=== PATIENT | male | born 1945 | race Caucasian/White ===

== ENCOUNTER 2018-08-22 08:37 | Inpatient (IN) | payer MEDICARE ==
[2018-08-22] MEDS ORDERED: Midazolam HCl 5 mg/ml Vial ONE (08:48)
[2018-08-22] MEDS ORDERED: Succinylcholine Chloride 20 MG/ML 10 ml SYRINGE FS ONE (08:58)
[2018-08-22 09:04] LABS: #Eosinphils 0.2 thou/uL (0.0-0.7); #Lymphocytes 1.3 thou/uL (1.20-3.40); #Monocytes 0.7 thou/uL (0.11-0.59); #Neutrophils 7.5 thou/uL (1.40-6.50); %Basophils 0.1 % (0.0-1.0); %Eosinophils 2.3 % (0.0-10.0); %Lymphocytes 13.8 % (21.0-51.0); %Monocytes 6.8 % (0.0-10.0); %Neutrophils 77.1 % (42.0-75.0); Hemoglobin 14.5 g/dL (14.0-18.0); Mean Corpuscular HGB CONC 33.5 g/dL (32.0-36.0); Mean Corpuscular Volume 95.4 fL (78.0-98.0); Mean Platelet Volume 7.3 fL (7.4-10.4); Platelet Count 304 thou/uL (130-400); RBC Distribution Width 13.5 % (11.5-14.5); Red Blood Cell (RBC) Count 4.52 mill/uL (4.70-6.10); White Blood Cell (WBC) Count 9.7 thou/uL (4.8-10.8)
[2018-08-22 09:11] LABS: PTT 37.7 SEC (22.9-36.1); Prothrombin Time 36.4 SEC (12.0-14.7)
[2018-08-22 09:12] LABS: INR-International Normal Ratio 3.7
[2018-08-22 09:27] LABS: ALT (SGPT) 21 U/L (8-55); AST (SGOT) 32 U/L (5-34); Albumin 4.2 g/dL (3.4-4.8); Alkaline Phosphatase 93 U/L (40-150); Anion Gap 14 mmol/L (10-20); BUN (Urea Nitrogen) 26 mg/dL (8.4-25.7); Bilirubin, Total 0.6 mg/dL (0.2-1.2); CK (CPK) 315 U/L (30-200); Calc. Creatinine Clearance 0 mL/min (70-130); Calcium 9.3 mg/dL (7.8-10.44); Carbon Dioxide 21 mmol/L (23-31); Chloride 106 mmol/L (98-107); Estimated GFR-MDRD 74; Globulin 3.3 g/dL (2.4-3.5); Glucose 180 mg/dL (83-110); Potassium 3.7 mmol/L (3.5-5.1); Protein, Total 7.5 g/dL (5.8-8.1); Sodium 137 mmol/L (136-145)
[2018-08-22 09:31] LABS: CKMB 5.4 ng/mL (0-6.6); Troponin I Less than 0.010 ng/mL (< 0.028)
[2018-08-22 09:52] LABS: Actual Bicarbonate (HCO3a) 22.6 mEq/L (22-28); Analyzer IN Cardio ER; Base Excess (BEa) -3.1 mEq/L (-2.0 to +3.0); CO2 Tension 42.9 mmHg (35.0-45.0); Calcium, Ionized 1.12 mmol/L (1.12-1.30); Carboxyhemoglobin (COHb) 0.4 gm% (0.0-3.0); Hemoglobin (Hb) 13.1 g/dL (14.0-18.0); O2 Tension (PaO2) 137.5 mmHg (> 70.0); Potassium - ABG Lab 3.13 mmol/L (3.70-5.30); pH, Arterial 7.34 (7.35-7.45)
[2018-08-22 09:54] LABS: ALV-art Gradient 165.375 (0-20); Puncture Site LBA
[2018-08-22] MEDS ORDERED: niCARdipine 20MG In NaCl 20 MG/200 ML BAG ONE (10:13)
[2018-08-22 10:20] LABS: Bilirubin Negative (Negative); Blood, Urine Small (Negative); Clarity CLEAR (Clear); Glucose, Urine (Dipstick) Negative (Negative); Leukocyte Negative (Negative); Nitrite Negative (Negative); Protein, Urine (Dipstick) 100 mg/dL (Neg-Trace); Specific Gravity, Urine 1.015 (1.002-1.036); Urobilinogen 0.2 mg/dL (0.2-1.0)
[2018-08-22] MEDS ORDERED: Fentanyl 20 mcg/ml (100 ml CADD) IV PRN (10:25)
[2018-08-22 10:26] LABS: Bacteria/HPF None Seen HPF (None Seen); Hyaline Casts/LPF 0-3 HYALINE CAST LPF (0-3 Hyaline); Pathc Cast-AUWi Flag 0.14 (0-2.49); RBC/HPF 0-3 HPF (0-3); Squamous Epithelial 0-3 HPF (0-3); WBC/HPF None Seen HPF (0-3)
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
[2018-08-22] MEDS ORDERED: Phytonadione 10 MG/ML AMP IM SCH ×2 (10:45→12:45)
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
[2018-08-22] MEDS ORDERED: ISOVUE-370 76%-LOCM 1 ML ONE ×2 (10:47)
[2018-08-22] MEDS ORDERED: Fentanyl 100 MCG/2 ML VIAL ONE ×4 (11:01→11:18)
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
[2018-08-22] MEDS ORDERED: Ondansetron ODT 4 MG TAB PO PRN (11:14)
[2018-08-22] MEDS ORDERED: Dextrose 50% Abboject 50 ML SYRINGE SLOW IVP PRN (11:14)
[2018-08-22] MEDS ORDERED: hydrALAZINE 20 MG/ML VIAL SLOW IVP PRN (11:14)
[2018-08-22] MEDS ORDERED: Ondansetron PF 4 MG/2 ML Vial IVP PRN (11:14)
[2018-08-22] MEDS ORDERED: Dextrose 5% in Water 1,000 ML IV PRN (11:14)
[2018-08-22] MEDS ORDERED: [UNRECOGNIZED DRUG - OTHER] IV SCH (11:15)
[2018-08-22] MEDS ORDERED: ADMIXTURE FEE IV SCH ×2 (11:15)
[2018-08-22] MEDS ORDERED: [UNRECOGNIZED DRUG - OTHER] IV SCH (11:15)
[2018-08-22] MEDS ORDERED: HUM PROTHROMBIN CPLX(PCC)4FACT 1,000 UNIT in Admixture Fee 1 EACH IV SCH (11:15)
[2018-08-22] MEDS ORDERED: HUM PROTHROMBIN CPLX IV SCH ×2 (11:15)
[2018-08-22] MEDS ORDERED: Lorazepam 2 MG/ML VIAL SLOW IVP PRN (11:48)
[2018-08-22] MEDS ORDERED: Propofol 1,000 MG/100 ML VIAL IV PRN (11:48)
[2018-08-22] MEDS ORDERED: fentaNYL Citrate/PF 2,000 MCG in Sodium Chloride 0.9% 60 ML IV SCH (11:48)
[2018-08-22] MEDS ORDERED: Fentanyl BOLUS 250 ML IVPB PRN (11:48)
[2018-08-22] MEDS ORDERED: DISCONTINUE PREVIOUS NARCOTIC PAIN MEDICATIONS AND BENZODIAZEPINES FS SCH (11:48)
[2018-08-22] MEDS ORDERED: Propofol BOLUS 1,000 MG/100 ML VIAL IV PRN (11:48)
[2018-08-22 11:51] VITALS: BMI 30.7
[2018-08-22 12:29] LABS: INR-International Normal Ratio 1.7; PTT 31.1 SEC (22.9-36.1); Prothrombin Time 19.8 SEC (12.0-14.7)
[2018-08-22] MEDS ORDERED: Sodium Bicarbonate 100 MEQ in Dextrose 5% in Water 1,000 ML IV SCH (12:45)
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
--- NOTE | 2018-08-22 14:29 | RAD ---
THREE VIEWS LEFT ANKLE: Date: 08-22-18 History: FINDINGS: There is irregularity involving the medial malleolus as well as distal fibula which may be related to remote fractures and prior injury. No definite acute fracture is seen. There is no dislocation. The ankle mortise is congruent. Mild degenerative changes are seen at the tibiotalar joint. There are als o minimal degenerative changes involving the midfoot. Small posterior and plantar calcaneal enthesoph ytes are identified. IMPRESSION: Findings likely related to prior injury and possible prior fractures involving the medial malleolus a nd distal fibula. There is questionable lucency seen within the lateral aspect of the talar dome and subchondral defect cannot be entirely excluded. POS: [facility]
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
[2018-08-22 18:51] LABS: Anion Gap 12 mmol/L (10-20); BUN (Urea Nitrogen) 21 mg/dL (8.4-25.7); Calc. Creatinine Clearance 100 mL/min (70-130); Calcium 8.9 mg/dL (7.8-10.44); Carbon Dioxide 27 mmol/L (23-31); Chloride 102 mmol/L (98-107); Estimated GFR-MDRD 75; Glucose 143 mg/dL (83-110); Sodium 137 mmol/L (136-145)
--- NOTE | 2018-08-22 19:07 | CT ---
BRAIN CT WITHOUT IV CONTRAST: History: Follow up intracranial hemorrhage. Comparison: 08-22-18 at 0935 hours. FINDINGS: There is a very extensive subarachnoid, subdural and intraparenchymal hemorrhage changes again noted. The left sided subdural hemorrhage has definitely increased in size. There is also some increase in size of the smaller right sided subdural hematoma. There is increase in size of the left subdural hem atoma along the tentorium. Worsening intraparenchymal contusions, particularly in the frontal lobes. There does not appear to be any significant change in the midline. Basal cisterns appear diminished i ndicating generalized significant mass effect. IMPRESSION: Considerable worsening in the hemorrhagic changes bilaterally, particularly the left sided subdural h ematoma with a small right subdural showing worsening as well as intraparenchymal contusion showing w orsening. Possible trace intraventricular hemorrhage. Findings were discussed with nurse Heidi, who i ndicates that she will contact Romaine Duncan in this regard. Code CR POS: [facility]
--- NOTE | 2018-08-22 19:09 | RAD ---
KUB: Comparison: None. History: NG tube placement. FINDINGS: Single view of the abdomen shows a nonspecific, nonobstructed bowel gas pattern. An NG tube is seen i n the stomach. Degenerative changes are seen in the spine. The patient has a left hip prosthesis. IMPRESSION: 1. No evidence of bowel obstruction. 2. NG tube located in the stomach. POS: [facility]
[2018-08-22] MEDS: Famotidine/PF 20 mg/2ml Vial SLOW IVP SCH (20:32)
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
--- NOTE | 2018-08-22 22:31 | CT ---
CT HEAD NONCONTRAST: 08/22/18 HISTORY: Intracranial hemorrhage. Followup. COMPARISON: Earlier exam on the same date. FINDINGS: Widespread subarachnoid hemorrhage, multifocal intraparenchymal hematomas near the farris-white junctio n, and the left temporoparietal subdural hematoma are similar in appearance to the previous exam. Sma ll amount of acute hemorrhage in each lateral ventricle is also stable. Ventricles remain decompresse d. Diffuse effacement of the sulci and basilar cisterns. Small right posterior temporal subdural chivo yin is stable. Diffuse scalp swelling. Small embedded metallic sphere at the frontal scalp. IMPRESSION: Widespread intracranial hemorrhage and other posttraumatic findings are stable compared to the most r ecent exam. POS: [facility]
[2018-08-23] MEDS ORDERED: Sodium Chloride 0.9% 500 ML IVPB SCH (01:00)
[2018-08-23] MEDS ORDERED: Hydrocortisone Sod Succ/PF 100 mg/2 ml Vial IVP SCH (01:00)
[2018-08-23 01:26] LABS: Hemoglobin 11.7 g/dL (14.0-18.0)
[2018-08-23] MEDS: Lactated Ringer's 1,000 ML IV SCH ×3 (01:26→19:06)
[2018-08-23 04:56] LABS: INR-International Normal Ratio 2.3; Prothrombin Time 24.9 SEC (12.0-14.7)
[2018-08-23 05:01] LABS: #Lymphocytes 0.6 thou/uL (1.20-3.40); #Monocytes 0.7 thou/uL (0.11-0.59); #Neutrophils 8.8 thou/uL (1.40-6.50); %Basophils 0.1 % (0.0-1.0); %Eosinophils 0.2 % (0.0-10.0); %Monocytes 6.8 % (0.0-10.0); Hemoglobin 12.1 g/dL (14.0-18.0); Mean Corpuscular HGB CONC 33.3 g/dL (32.0-36.0); Mean Corpuscular Hemoglobin 31.6 pg (27.0-31.0); Mean Corpuscular Volume 94.8 fL (78.0-98.0); Mean Platelet Volume 7.8 fL (7.4-10.4); Platelet Count 278 thou/uL (130-400); RBC Distribution Width 13.5 % (11.5-14.5); Red Blood Cell (RBC) Count 3.84 mill/uL (4.70-6.10); White Blood Cell (WBC) Count 10.1 thou/uL (4.8-10.8)
[2018-08-23 05:16] LABS: Anion Gap 13 mmol/L (10-20); BUN (Urea Nitrogen) 23 mg/dL (8.4-25.7); CK (CPK) 241 U/L (30-200); Calc. Creatinine Clearance 98 mL/min (70-130); Calcium 8.5 mg/dL (7.8-10.44); Carbon Dioxide 28 mmol/L (23-31); Chloride 102 mmol/L (98-107); Estimated GFR-MDRD 73; Glucose 147 mg/dL (83-110); Magnesium 1.7 mg/dL (1.6-2.6); Phosphorus 2.2 mg/dL (2.3-4.7); Potassium 3.7 mmol/L (3.5-5.1); Sodium 139 mmol/L (136-145)
[2018-08-23 07:42] LABS: Actual Bicarbonate (HCO3a) 24.7 mEq/L (22-28); Base Excess (BEa) 2.2 mEq/L (-2.0 to +3.0); CO2 Tension 31.5 mmHg (35.0-45.0); Carboxyhemoglobin (COHb) 1.1 gm% (0.0-3.0); Hemoglobin (Hb) 12.1 g/dL (14.0-18.0); O2 Tension (PaO2) 61.5 mmHg (> 70.0); pH, Arterial 7.51 (7.35-7.45)
[2018-08-23 07:43] LABS: Puncture Site RRA
[2018-08-23 07:44] LABS: ALV-art Gradient 184.325 (0-20)
[2018-08-23] MEDS ORDERED: Iopamidol 370 76% 50 ML VIAL FS ONE (08:06)
[2018-08-23] MEDS ORDERED: Magnesium 2 GM/50 ML 2 GM in Premix Bag 1 BAG IVPB SCH (08:15)
[2018-08-23] MEDS ORDERED: Potassium Phosphate 30 MMOL in Sodium Chloride 0.9% 500 ML IVPB SCH (08:30)
--- NOTE | 2018-08-23 09:22 | PRG ---
DATE OF SERVICE: 08/23/2018 Mr. Patel, this morning, is still intubated and sedated. His CAT scan last night around 10:00 was stable to the one performed yesterday afternoon 1600. His exam is also stable. He localizes pain wi th all 4 extremities, but does not follow any commands. He does not open his eyes at any time. He i s intubated and attempts to grasp with the tube given the chance that is why he has remained on cheri tion throughout the night. We will plan to repeat another CAT scan this morning around 10:00 just to ensure that there is no longer any hemorrhagic progression. Family at bedside asked for possibility of IVC filter given the need of his Coumadin for clotting purposes. I would support the decision, b ut defer to Trauma team for that final decision.
[2018-08-23] MEDS: Famotidine/PF 20 mg/2ml Vial SLOW IVP SCH ×2 (09:23→21:14)
[2018-08-23] MEDS ORDERED: Lidocaine 1% (PF) 30 ML VIAL ONE (09:35)
--- NOTE | 2018-08-23 09:39 | RAD ---
PORTABLE CHEST: Date: 08/23/18 HISTORY: Intubation and ventilator follow-up. CCU follow-up. COMPARISON: 08/22/18. FINDINGS: Cardiomegaly. Small bilateral effusions and bibasilar atelectasis. Upper lung graham remain well aera brittani and clear. ET tube and NG tube are noted. The NG tube coils in the stomach. IMPRESSION: No acute interval change. POS: [facility]
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
[2018-08-23] MEDS ORDERED: Lisinopril 20 MG TAB PO SCH (12:00)
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
[2018-08-23 13:27] LABS: INR-International Normal Ratio 1.7; PTT 49.6 SEC (22.9-36.1); Prothrombin Time 19.6 SEC (12.0-14.7)
[2018-08-23] MEDS: niCARdipine HCl 25 MG in Sodium Chloride 0.9% 250 ML 240 ML IVPB SCH ×3 (14:43→19:08)
[2018-08-23] MEDS ORDERED: Lorazepam 2 MG/ML VIAL ONE (15:26)
--- NOTE | 2018-08-23 16:14 | CT ---
CT HEAD NONCONTRAST: 08/23/18 HISTORY: Intracranial hemorrhage. Followup. COMPARISON: 08/22/18. FINDINGS: Widespread subarachnoid hemorrhage and multifocal intraparenchymal hematomas, predominantly near the farris-white junction are similar in appearance to the prior study. Small subdural hyperdense hematomas at each posterior temporal level are unchanged in size. The hemorrhage within the dependent portion of each lateral ventricle is less visible than on the prior study. Diffuse cerebral edema with efface ment of the sulci and basilar cisterns is again demonstrated. On today's exam, a subtle areas of low density involving the posterior aspect of the left temporal lo be extends through the cortical farris matter and has the appearance of developing cytotoxic edema. Sep sara pellucidum remains midline. IMPRESSION: Developing cytotoxic edema associated with a left posterior temporal lobe infarct in the posterior di stribution of the middle cerebral artery. Diffuse cerebral edema, widespread hemorrhage, and other findings are otherwise stable. POS: [facility]
[2018-08-23] MEDS ORDERED: Acetaminophen 1,000 MG in Premix Bag 1 BAG IVPB PRN (17:18)
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
[2018-08-23] MEDS ORDERED: manNITOL 20% 500 ML IVPB SCH (23:45)
--- NOTE | 2018-08-23 23:45 | CT ---
CT HEAD NONCONTRAST: 08/23/18 HISTORY: Intracranial hemorrhage Declining neurologic status. COMPARISON: Multiple previous exams FINDINGS: Widespread subarachnoid hemorrhage and multifocal intraparenchymal hematomas are similar in appearanc e to the previous exam. Going back to the study from the afternoon of 08/22/18, the hemorrhage is sta ble. The area of developing infarct at the posterior aspect of the left temporal lobe has enlarged sl ightly. Septum pellucidum remains midline. Diffuse cerebral edema and other findings are stable. IMPRESSION: Slight interval enlargement of the area of developing infarct in the left temporal lobe. Widespread subarachnoid hemorrhage, diffuse cerebral edema, and other findings are otherwise stable. POS: [facility]
[2018-08-23] MEDS ORDERED: fentaNYL Citrate/PF 2,000 MCG in Sodium Chloride 0.9% 60 ML IV SCH (23:47)
[2018-08-23] MEDS ORDERED: Fentanyl CADD 250 ML IVPB SCH (23:47)
[2018-08-23] MEDS ORDERED: Propofol BOLUS 1,000 MG/100 ML VIAL IV PRN (23:47)
[2018-08-23] MEDS ORDERED: Propofol 1,000 MG/100 ML VIAL IV PRN (23:47)
[2018-08-24 00:29] LABS: Anion Gap 13 mmol/L (10-20); BUN (Urea Nitrogen) 27 mg/dL (8.4-25.7); Calc. Creatinine Clearance 87 mL/min (70-130); Calcium 8.3 mg/dL (7.8-10.44); Carbon Dioxide 26 mmol/L (23-31); Chloride 105 mmol/L (98-107); Estimated GFR-MDRD 64; Glucose 158 mg/dL (83-110); Potassium 3.5 mmol/L (3.5-5.1); Sodium 140 mmol/L (136-145)
[2018-08-24] MEDS: Atropine Sulfate 1 mg/10 ml Syringe ONE ×2 (01:50→06:28)
[2018-08-24] MEDS: Lactated Ringer's 1,000 ML IV SCH ×3 (03:33→14:55)
[2018-08-24 04:51] LABS: INR-International Normal Ratio 1.5; PTT 40.5 SEC (22.9-36.1); Prothrombin Time 18.4 SEC (12.0-14.7)
[2018-08-24 04:52] LABS: #Lymphocytes 0.6 thou/uL (1.20-3.40); #Monocytes 0.7 thou/uL (0.11-0.59); #Neutrophils 7.4 thou/uL (1.40-6.50); %Basophils 0.2 % (0.0-1.0); %Eosinophils 0.1 % (0.0-10.0); %Lymphocytes 6.9 % (21.0-51.0); %Monocytes 7.7 % (0.0-10.0); %Neutrophils 85.1 % (42.0-75.0); Hemoglobin 10.7 g/dL (14.0-18.0); Mean Corpuscular HGB CONC 33.1 g/dL (32.0-36.0); Mean Corpuscular Hemoglobin 31.5 pg (27.0-31.0); Mean Corpuscular Volume 95.3 fL (78.0-98.0); Mean Platelet Volume 8.3 fL (7.4-10.4); Platelet Count 268 thou/uL (130-400); RBC Distribution Width 13.5 % (11.5-14.5); Red Blood Cell (RBC) Count 3.39 mill/uL (4.70-6.10); White Blood Cell (WBC) Count 8.7 thou/uL (4.8-10.8)
[2018-08-24 05:13] LABS: Anion Gap 11 mmol/L (10-20); BUN (Urea Nitrogen) 27 mg/dL (8.4-25.7); Calc. Creatinine Clearance 89 mL/min (70-130); Calcium 8.3 mg/dL (7.8-10.44); Carbon Dioxide 26 mmol/L (23-31); Chloride 104 mmol/L (98-107); Estimated GFR-MDRD 65; Glucose 149 mg/dL (83-110); Magnesium 2.2 mg/dL (1.6-2.6); Phosphorus 2.3 mg/dL (2.3-4.7); Potassium 3.8 mmol/L (3.5-5.1); Sodium 137 mmol/L (136-145)
[2018-08-24] MEDS ORDERED: Potassium Phosphate 15 MMOL in Sodium Chloride 0.9% 250 ML 250 ML IVPB SCH (07:30)
[2018-08-24 07:39] VITALS: TEMP 97.2
[2018-08-24 07:40] LABS: Actual Bicarbonate (HCO3a) 26.5 mEq/L (22-28); Base Excess (BEa) 2.8 mEq/L (-2.0 to +3.0); CO2 Tension 37.2 mmHg (35.0-45.0); Carboxyhemoglobin (COHb) 0.6 gm% (0.0-3.0); O2 Tension (PaO2) 68.7 mmHg (> 70.0); pH, Arterial 7.47 (7.35-7.45)
[2018-08-24 07:44] LABS: Puncture Site RRA
[2018-08-24 07:45] LABS: Anion Gap 11 mmol/L (10-20); BUN (Urea Nitrogen) 27 mg/dL (8.4-25.7); Calc. Creatinine Clearance 86 mL/min (70-130); Calcium 8.3 mg/dL (7.8-10.44); Carbon Dioxide 26 mmol/L (23-31); Chloride 109 mmol/L (98-107); Estimated GFR-MDRD 63; Glucose 146 mg/dL (83-110); Potassium 3.6 mmol/L (3.5-5.1); Sodium 142 mmol/L (136-145)
[2018-08-24 07:59] LABS: Osmolality, Urine 198 mOsm/kg (300-900)
[2018-08-24 08:11] LABS: Sodium, Urine Less than 20 mmol/L (Not Available)
[2018-08-24] MEDS ORDERED: Lisinopril 20 MG TAB PO SCH (09:00)
--- NOTE | 2018-08-24 09:13 | CT ---
CT HEAD WITHOUT CONTRAST: Date: 08/24/18 Multiple axial tomograms obtained through the head without IV enhancement. INDICATION: Follow-up intracranial hemorrhage. Comparison made to prior CT scan of 08/23/18 at 2320 hours and 1539 hours. FINDINGS: Diffuse subarachnoid blood is again noted. The basilar cisterns are obscured, suggesting increased in tracranial pressure. The numerous focal parenchymal hemorrhages seen throughout both cerebral hemisph eres, as well as the cerebellum, are again seen. These have not significantly increased in size or nu mber. IMPRESSION: Diffuse subarachnoid blood, as well as scattered parenchymal hemorrhages, are stable in appearance. T here is evidence of increasing intracranial pressure. There is increased sulcal effacement and oblite ration of the basilar cisterns. POS: [facility]
[2018-08-24] MEDS ORDERED: Lactated Ringer's 500 ML IV SCH (09:30)
[2018-08-24] MEDS: Famotidine/PF 20 mg/2ml Vial SLOW IVP SCH ×2 (09:35→20:16)
--- NOTE | 2018-08-24 11:08 | PRG ---
DATE OF SERVICE: 08/24/2018 SUBJECTIVE: Mr. Patel this morning unfortunately looks to have taken a significant neurologic down turn. This started overnight where his pupils became unequal. A stat CT was ordered that showed inc reasing edema and mannitol was started at 60 grams single dose, which was administered at 0027. Urin e output has been extraordinarily higher from 350-500. Immediately thereafter, most recently a t 350, we will order urine sodium, urine osmolality, serum osmolality, base met and urine specific gr avity to assess for any chance of . He does not have any other electrolyte derangement on exam. He is on fentanyl. He only withdrawals slightly with bilateral lower extremities, but do not have any upper extremities response. His bilateral pupils are now fixed at 6 mm and nonreactive. He do n ot have any pupil reflex, gag reflex or cough. There are issues with blood pressure and bradycardia, which Trauma has corrected. We will repeat a CAT scan here in an hour and adjust treatment as such based on the results. We will discuss with Dr. Fink.
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
[2018-08-24 14:04] LABS: Sodium 148 mmol/L (136-145)
[2018-08-24] MEDS ORDERED: Atropine Sulfate 1 mg/1 ml Vial IVP PRN (16:43)
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
[2018-08-25 04:10] LABS: Anion Gap 8 mmol/L (10-20); BUN (Urea Nitrogen) 30 mg/dL (8.4-25.7); Calc. Creatinine Clearance 75 mL/min (70-130); Calcium 8.6 mg/dL (7.8-10.44); Carbon Dioxide 31 mmol/L (23-31); Chloride 120 mmol/L (98-107); Estimated GFR-MDRD 53; Glucose 87 mg/dL (83-110); Magnesium 2.4 mg/dL (1.6-2.6); Phosphorus 2.3 mg/dL (2.3-4.7); Potassium 3.5 mmol/L (3.5-5.1); Sodium 155 mmol/L (136-145)
[2018-08-25 04:22] LABS: Hemoglobin 9.4 g/dL (14.0-18.0); Mean Corpuscular HGB CONC 32.9 g/dL (32.0-36.0); Mean Corpuscular Hemoglobin 32.5 pg (27.0-31.0); Mean Corpuscular Volume 98.8 fL (78.0-98.0); Mean Platelet Volume 7.5 fL (7.4-10.4); Platelet Count 219 thou/uL (130-400); RBC Distribution Width 13.7 % (11.5-14.5); White Blood Cell (WBC) Count 6.8 thou/uL (4.8-10.8)
[2018-08-25 04:55] LABS: Band 12 % (5-11); Lymphocytes 11 % (21-51); MDiff Complete? YES; Monocytes 8 % (0-10); Neutrophil 69 % (42-75)
[2018-08-25] MEDS: Lactated Ringer's 1,000 ML IV SCH (05:36)
[2018-08-25] MEDS ORDERED: Levothyroxine Sodium 400 MCG in Sodium Chloride 0.9% 100 ML IVPB SCH (08:30)
[2018-08-25] MEDS ORDERED: Insulin Regular 300 UNITS/3 ML VIAL IVP SCH (08:30)
[2018-08-25] MEDS ORDERED: methylPREDNISolone Sod Succ 2 GM in Sodium Chloride 0.9% 100 ML IVPB SCH (08:30)
[2018-08-25] MEDS ORDERED: Dextrose 50% Abboject 50 ML SYRINGE SLOW IVP SCH (08:30)
--- NOTE | 2018-08-25 08:55 | RAD ---
SINGLE VIEW CHEST: Date: 08/25/18 COMPARISON: 08/23/18. HISTORY: Respiratory status change. FINDINGS: Single view of the chest shows an enlarged but stable cardiomediastinal silhouette. The patient is st atus post sternotomy. The endotracheal tube and NG tube are unchanged in position. Increased opacity is seen in the right thorax which likely represents a pleural effusion and adjacent atelectasis versu s infiltrate. IMPRESSION: Worsening right pleural effusion with adjacent atelectasis versus infiltrate. POS: [facility]
[2018-08-25] MEDS: Famotidine/PF 20 mg/2ml Vial SLOW IVP SCH (09:18)
[2018-08-25 09:28] LABS: ALT (SGPT) 11 U/L (8-55); AST (SGOT) 15 U/L (5-34); AST (SGOT) 17 U/L (5-34); Albumin 2.8 g/dL (3.4-4.8); Albumin 2.9 g/dL (3.4-4.8); Alkaline Phosphatase 54 U/L (40-150); Alkaline Phosphatase 56 U/L (40-150); Anion Gap 6 mmol/L (10-20); BUN (Urea Nitrogen) 31 mg/dL (8.4-25.7); Bilirubin, Direct 0.4 mg/dL (0.1-0.3); Bilirubin, Total 1.1 mg/dL (0.2-1.2); Calc. Creatinine Clearance 70 mL/min (70-130); Calcium 8.5 mg/dL (7.8-10.44); Carbon Dioxide 28 mmol/L (23-31); Chloride 119 mmol/L (98-107); Estimated GFR-MDRD 50; Globulin 2.6 g/dL (2.4-3.5); Glucose 94 mg/dL (83-110); Potassium 3.3 mmol/L (3.5-5.1); Protein, Total 5.4 g/dL (5.8-8.1); Sodium 150 mmol/L (136-145)
[2018-08-25 10:19] LABS: Actual Bicarbonate (HCO3a) 33.7 mEq/L (22-28); Base Excess (BEa) 7.6 mEq/L (-2.0 to +3.0); CO2 Tension 56.3 mmHg (35.0-45.0); Carboxyhemoglobin (COHb) 0.4 gm% (0.0-3.0); Hemoglobin (Hb) 9.6 g/dL (14.0-18.0); O2 Tension (PaO2) 90.9 mmHg (> 70.0)
[2018-08-25 10:22] LABS: ALV-art Gradient 551.725 (0-20); Puncture Site RRA
[2018-08-25] MEDS ORDERED: VANC/ZOSYN IVPB PRN (10:24)
[2018-08-25 10:30] VITALS: BP 97/49
[2018-08-25] MEDS ORDERED: Vancomycin HCl 1.5 GM in Sodium Chloride 0.9% 250 ML 300 ML IVPB SCH (11:00)
[2018-08-25] MEDS ORDERED: Piperacillin/Tazobactam 4.5 GM in Sodium Chloride 0.9% 100 ML IVPB SCH (12:00)
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
[2018-08-25] MEDS ORDERED: Vancomycin HCl 1.25 GM in Sodium Chloride 0.9% 250 ML 250 ML IVPB SCH (21:00)
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
== END 2018-08-25 17:13 | disposition expired | DRG 40 ==
LOC: ERS 08:37 → CCU 11:20
PROVIDERS: ADMIT Surgery; ATTEND Surgery
PROC: 06H03DZ Insertion of Intraluminal Device into Inferior Vena Cava, Percutaneous Approach (ICD-10-PCS; principal; 2018-08-22)
PROC: 5A1945Z Respiratory Ventilation, 24-96 Consecutive Hours (ICD-10-PCS; 2018-08-22)
PROC: 0BH17EZ Insertion of Endotracheal Airway into Trachea, Via Natural or Artificial Opening (ICD-10-PCS; 2018-08-22)
PROC: 30233L1 Transfusion of Nonautologous Fresh Plasma into Peripheral Vein, Percutaneous Approach (ICD-10-PCS; 2018-08-23)
PROC: 0B9F8ZZ Drainage of Right Lower Lung Lobe, Via Natural or Artificial Opening Endoscopic (ICD-10-PCS; 2018-08-25)
DX: S06.6X9A Traumatic subarachnoid hemorrhage with loss of consciousness of unspecified duration, initial encounter (principal); J96.90 Respiratory failure, unspecified, unspecified whether with hypoxia or hypercapnia; D62 Acute posthemorrhagic anemia; E23.2 Diabetes insipidus; N17.9 Acute kidney failure, unspecified; G93.40 Encephalopathy, unspecified; S06.5X9A Traumatic subdural hemorrhage with loss of consciousness of unspecified duration, initial encounter; S06.1X9A Traumatic cerebral edema with loss of consciousness of unspecified duration, initial encounter; I10 Essential (primary) hypertension; Z86.711 Personal history of pulmonary embolism; R40.2422 Glasgow coma scale score 9-12, at arrival to emergency department; R40.2433 Glasgow coma scale score 3-8, at hospital admission; R00.1 Bradycardia, unspecified; Z79.01 Long term (current) use of anticoagulants; Z95.1 Presence of aortocoronary bypass graft; G47.33 Obstructive sleep apnea (adult) (pediatric); I25.10 Atherosclerotic heart disease of native coronary artery without angina pectoris; E78.00 Pure hypercholesterolemia, unspecified; Z66 Do not resuscitate; V47.5XXA Car driver injured in collision with fixed or stationary object in traffic accident, initial encounter; Y92.410 Unspecified street and highway as the place of occurrence of the external cause; E83.39 Other disorders of phosphorus metabolism; M10.9 Gout, unspecified; Z79.82 Long term (current) use of aspirin; Z82.49 Family history of ischemic heart disease and other diseases of the circulatory system; Z88.5 Allergy status to narcotic agent; Z96.642 Presence of left artificial hip joint; Z96.651 Presence of right artificial knee joint
CPT/HCPCS: 31500; 36415; 36416; 36430; 37191; 51702; 70450; 70496; 70498; 71045; 71260; 72125; 74018; 74177; 76942; 80048; 80053; 81002; 81003; 81015; 82533; 82550; 82553; 82805; 83735; 83930; 83935; 84100; 84300; 84484; 85025; 85610; 85730; 86850; 86900; 86901; 87040; 87070; 87086; 87205; 89220; 93005; 93010; 93306; 94002; 94003; 94640; 96361; 96365; 96366; 96368; 96374; 96375; 96376; C1769; C9132; G0390; J0131; J0360; J0461; J1644; J1720; J1815; J2001; J2060; J2250; J2597; J2704; J2930; J3010; J3370; J3430; J7050; J7070; J7799; P9045; P9059; S0028